=== PATIENT | female | born 1970 | race African-American/Black ===

== ENCOUNTER → 2020-01-20 | Emergency (ER) | payer OTHER ==
[~2020-01-20] VITALS: Ht 162.6 cm; Wt 136.1 kg
[2020-01-20 07:28] VITALS: BP 113/88
== END | disposition home or self-care (01) ==
LOC: ER 04:29
DX: S82.102A Unspecified fracture of upper end of left tibia, initial encounter for closed fracture (principal); X58.XXXA Exposure to other specified factors, initial encounter; Y93.89 Activity, other specified; Y92.89 Other specified places as the place of occurrence of the external cause; Y99.8 Other external cause status
CPT/HCPCS: 29505; 72100; 72125; 73562